=== PATIENT | female | born 1945 ===

== ENCOUNTER 2022-04-02 12:16 | Observation (INO) ==
[~2022-04-02 12:16] MED LIST: Buffered Lidocaine 1% SYRIN 1 ml INTRADERM ONE; Dexmedetomidine 200 mcg/2 ml 2 ml VIAL (200 mcg) ONE; Lactated Ringers 1000 ml BAG 1,000 ML IV SCH; Naloxone 0.4 mg VIAL 0.4 mg/ml 1 ml VIAL IV PRN; Ondansetron 4 mg VIAL 2 MG/ML 2 ml VIAL IV PRN; ROPIVACAINE 5 MG/ML 30 ML BTL (0.5%) ONE; fentaNYL 100 mcg/2 ml 50 MCG/ML VIAL IV PRN; oxyCODONE/Acetamin 5/325 mg TAB PO PRN
[2022-04-02] MEDS ORDERED: Clindamycin 900 MG/D5W BAG 900 MG/50 ML BAG IVPB ONE (12:54)
[2022-04-02] MEDS ORDERED: Ropivacaine 5 MG/ML 20 ML VIAL 0.5% (100 MG) ONE (13:56)
[2022-04-02] MEDS ORDERED: fentaNYL 100 mcg/2 ml 50 MCG/ML VIAL ONE (14:06)
[2022-04-02] MEDS ORDERED: ROPIVACAINE 5 MG/ML 30 ML BTL (0.5%) ONE (14:06)
[2022-04-02] MEDS ORDERED: Midazolam 5 mg/5 ml VIAL 1 mg/ml 5 ml VIAL (5 mg) ONE (14:06)
[2022-04-02] MEDS ORDERED: Glycopyrrolate IV 0.2 MG/ML 1 ML VIAL ONE (15:36)
[2022-04-02] MEDS ORDERED: Morphine 2 MG/ML SYRINGE IV PRN (15:58)
[2022-04-02] MEDS ORDERED: Ondansetron 4 mg VIAL 2 MG/ML 2 ml VIAL IV PRN (15:58)
[2022-04-02] MEDS ORDERED: Lactulose 30 ml UDC PO PRN (15:58)
[2022-04-02] MEDS ORDERED: Ondansetron ODT 4 mg TAB 4 MG TAB PO PRN (15:58)
[2022-04-02] MEDS ORDERED: Magnesium Hydroxide LIQ 30 ML UDC PO PRN (15:58)
[2022-04-02] MEDS ORDERED: HYDROmorphone 0.5 MG/0.5 ML SYRINGE ONE ×2 (16:00→16:08)
[2022-04-02] MEDS ORDERED: Lactated Ringers 1000 ml BAG 1,000 ML IV SCH (16:00)
[2022-04-02] MEDS ORDERED: Acetaminophen IV 1 GM/100ML 1,000 MG/100 ML BAG IV ONE (16:08)
[2022-04-02] MEDS ORDERED: Flumazenil 0.5 mg/5 ml 0.1 MG/ML 5 ml VIAL ONE (18:09)
[2022-04-02] MEDS: Magnesium Hydroxide LIQ 30 ML UDC PO SCH (20:51)
[2022-04-03] MEDS: Clindamycin 600 MG/D5W BAG 600 MG/50 ML BAG IV SCH ×3 (00:47→14:00)
[2022-04-03 07:12] LABS: Hematocrit 39 % (35-47); Hemoglobin 13.4 g/dL (12.0-16.0); Mean Platelet Volume 9.8 fL (7.4-10.4); Platelet Count 165 10^3/uL (150-450)
[2022-04-03 07:25] LABS: Calcium 9.2 mg/dL (8.6-10.3); Potassium 4.4 mmol/L (3.5-5.0); eGFR CKD-EPI 62.1 (>60)
[2022-04-03] MEDS: Magnesium Hydroxide LIQ 30 ML UDC PO SCH (08:49)
[2022-04-03] MEDS ORDERED: Vitamin THERAPEUTIC TAB PO SCH (09:00)
[2022-04-03 11:20] VITALS: BP 116/59
== END 2022-04-03 15:20 | disposition home or self-care (01) ==
LOC: SSU 12:16 → OR 12:16
PROVIDERS: ADMIT Orthopaedic Surgery Adult Reconstructive Orthopaedic Surgery; ATTEND Orthopaedic Surgery Adult Reconstructive Orthopaedic Surgery